=== PATIENT | female | born 1950 | race Caucasian/White ===

== ENCOUNTER → 2019-07-28 07:57 | Outpatient (CLI) | payer MEDICARE, BC ==
[2013-01-17 06:57] VITALS: BMI 29.2
[~2019-07-28 07:57] MED LIST: TOPROL XL50 MG PO
--- NOTE | 2019-08-07 13:30 | EC ---
PATIENT:LA NENA VELASQUEZ DATE OF SERVICE: 07/28/19 SEX: F MEDICAL RECORD: [id number] DATE OF : [birth year] LOCATION:D[facility] AGE OF PATIENT: 69 ADMISSION DATE: 07/28/19 REFERRING PHYSICIAN: INTERPRETING PHYSICIAN: NAVID HERNANDEZ MD ECHOCARDIOGRAM REPORT ECHO CHARGES 4 ECHO COMPLETE Date: 07/28/19 CLINICAL DIAGNOSIS: SOB/PULMONARY HTN/HTN ECHOCARDIOGRAPHIC MEASUREMENTS (adult normal given) AC root (d.<3.7cm) 2.8 cm LV Septum d (<1.2 cm> 1.1 cm Valve Excursion 1.6 cm LV Septum (systole) 1.6 cm Left Atria (s.<4.0cm> 2.3 cm LVPW d(<1.2cm) 1.2 cm RV (d.<2.3cm) 2.7 cm LVPW (sytole) 1.7 cm LV diastole(<5.6CM) 5.1 cm MV E-F(>70mm/sec) cm LV systole 3.4 cm LVOT Diameter 1.9 cm MV exc.(>10mm) cm Est.ejection fraction (50-75%) % DOPPLER: LVIT cm/sec A 86.0 cm/sec E 103 cm/sec LA cm/sec RVSP 47.4 mmHg LVOT 84.0 cm/sec AOP1/2T m/s Asc. Ao 134 cm/sec RVOT 60.0 cm/sec RA cm/sec PA 88.0 cm/sec AV Gradient Peak 7.2 mmHg AV Mean 4.5 mmHg AV Area 1.7 cm MV Gradient Peak 6.4 mmHg MV Mean 2.2 mmHg MV Area cm COMMENTS: OP - HC Food Vendor: Janes [facility] [place] Unit Clerk: 1 Dr. Hernandez TAPE# PACS Pericardial Effusion N DATE OF SERVICE: PROCEDURE: Echocardiogram. FINDINGS: 1. Left ventricular chamber size is within normal limits. Left ventricular systolic function is normal at 55% to 60%. 2. Left atrium, right atrium, and right ventricular chamber sizes are within normal limits. 3. Valvular structures have normal structure and motion. ECHOCARDIOGRAM REPORT [id number] LA NENA VELASQUEZ 4. Doppler interrogation reveals mild mitral regurgitation, moderate tricuspid regurgitation, no other valvular insufficiency or stenosis. Pulmonary systolic pressure is estimated 47 mmHg. 5. No evidence of pericardial effusion or left ventricular thrombus. TRANSINT:[id number] Voice Confirmation ID: [id number] DOCUMENT ID: [id number] NAVID HERNANDEZ MD at 1330 CC: [id number] DICTATION DATE: 07/29/19 180 DEWATERER OPERATOR: 07/30/19 0150 DEP CLI 07/28/19 [place] [id number] [place] [address]
[2019-09-24 00:47] VITALS: BMI 27.7
== END | disposition home or self-care (01) ==
LOC: D.HCCECHO 07:57
PROVIDERS: ATTEND Internal Medicine Interventional Cardiology
DX: I27.20 Pulmonary hypertension, unspecified (principal)

== ENCOUNTER 2019-09-23 21:05 | Observation (INO) | payer MEDICARE, BC ==
[~2019-09-23] VITALS: Ht 162.6 cm; Wt 73.4 kg
--- NOTE | ~2019-09-23 | HEMODYNAMI ---
PATIENT:LA NENA VELASQUEZ MEDICAL RECORD: [id number] : 48 LOCATION:[facility] D.2116 ADMISSION DATE: 09/23/19 Generatedon:09/24/201912:35 Patient name: LA NENA VELASQUEZ Patient #: [id number] SS N: : 1950 Date of study: 09/24/2019 Page: Of Hemodynamic Procedure Report Patient Data Patient Demographics Procedure consent was obtained First Name: LA NENA Gender: Female Last Name: RON : 1950 [facility] Initial: E Age: 69 year(s) Patient #: [id number] Race: Unknown Additional ID: [id number] Contact details [address]: [address] [place] [address] State: [place] City: [place] Zip code: [address] Past Medical History Allergies Allergen Reaction Date Comments Reported Sulfa drugs 09/24/2019 Penicillins 09/24/2019 Admission Admission Data Admission Date: 09/23/2019 Admission Time: 22:31 Room #: D.2116 Lab Results Lab Result Date: 09/24/2019 Lab Result Time: 0:00 Biochemistry Name Units Result Min Max BUN mg/dl 15 --(--*-)-- 7 18 Creatinine mg/dl 0.8 --(-*--)-- 0.6 1.3 CBC Name Units Result Min Max Hemoglobin g/dl 13.8 --(*---)-- 13.5 17.5 Procedure Procedure Types Cath Procedure Diagnostic Procedure LHC LHC w/Coronaries Procedure Description Procedure Date Procedure Date: 09/24/2019 Procedure Start Time: 12:25 Procedure End Time: 12:32 Procedure Staff Name Function Truong Hernandez MD Performing Physician Armaan Ashby RN Casket Assembler Israel Cedeno RT Monitor Trish Rob RT Scrub Jacinta Nathan RN Nurse Procedure Data Cath Procedure Fluoroscopy Diagnostic fluoroscopy Total fluoroscopy Time: 1 time: 1 min min Diagnostic fluoroscopy Total fluoroscopy dose: 167 dose: 167 mGy mGy Contrast Material Contrast Material Type Amount (ml) Isovue 370 38 Entry Location Entry Primary Successful Side Size Upsize Upsize Entry Closure Bran ccessful Closure Location (Fr) 1 (Fr) 2 (Fr) Remarks Device Remarks Radial Right 6 Fr Manual artery Short Compression Diagnostic catheters Device Type Used For End Catheter Placement DIAGNOSTIC Midland 110cm 5 LV Angiography Fr catheter ([id number]) Procedure Complications No complications Procedure Medications Medication Administration Route Dosage Oxygen etCO2 Nasal cannula 2 l/min Lidocaine 2% added to field 20 Heparin Flush Bag added to field 2 bags (1000units/500ml NS) 0.9% NaCl I.V. 100 ml/hr Radial Cocktail I.A. 1 syringe (Verapamil 2mg/Nitro 400mcg/Heparin 1500units) Versed I.V. 2 mg Fentanyl I.V. 50 mcg Versed I.V. 1 mg Fentanyl I.V. 50 mcg Lopressor I.V. 5 mg Hemodynamics Rest HGB: 13.8 (g/dl) Heart Rate: 105 (bpm) Snapshots Pre Cath Intra NCS Post Cath Vital Signs Time Heart Resp SPO2 etCO2 NIBP (mmHg) Rhythm Pain Sedation Rate (ipm) (%) (mmHg) Status Level (bpm) 12:06:45 111 20 100 33.2 175/104(137) NSR 0 (11) 10(A) , No pain 12:11:08 99 21 99 27.9 146/87(123) NSR 0 (11) 10(A) , No pain 12:15:26 91 38 100 30.2 153/82(126) NSR 0 (11) 10(A) , No pain 12:19:46 83 17 98 30.9 136/68(98) NSR 0 (11) 10(A) , No pain 12:24:02 82 13 96 15.8 130/66(86) NSR 0 (11) 9(A) , No pain 12:28:12 118 20 95 30.9 132/83(107) NSR 0 (11) 9(A) , No pain 12:34:16 74 16 97 31.7 118/73(82) NSR 0 (11) 10(A) , No pain Medications Time Medication Route Dose Verified Delivered Reason Notes Effectiveness by by 12:15:55 Radial Cocktail I.A. 1 Truong Guerin for (Verapamil syringe Mary Hernandez MD vasodilation 2mg/Nitro 400mcg/Heparin 1500units) 12:16:25 Oxygen etCO2 2 l/min Truong Buffie used for Nasal Mary Nathan RN procedure cannula 12:16:33 Lidocaine 2% added 20ml Truong Truong for local to vial Mary Hernandez MD anesthetic field 12:16:38 Heparin Flush added 2 bags Truongkatie Guerin used for Bag to Mary Hernandez MD procedure (1000units/500ml field NS) 12:16:47 0.9% NaCl I.V. 100 Truong Buffie Per ml/hr Mary Nathan RN physician 12:22:58 Versed I.V. 2 mg Truong Buffie for sedation Mary Nathan RN 12:23:04 Fentanyl I.V. 50 mcg Truong Buffie for sedation Mary Nathan RN 12:27:14 Versed I.V. 1 mg Truong Buffie for sedation Mary Nathan RN 12:27:18 Fentanyl I.V. 50 mcg Truong Spauldingie for sedation Mary Nathan RN 12:30:08 Lopressor I.V. 5 mg Truong Spauldingie for Mary Nathan RN arrhythmia Procedure Log Time Note 11:49:57 Armaan Ashby RN sent for patient. Start room use. 12:04:43 ACC Patient presents with Stable Angina CCS Anginal Class 1--Ordinary physical activity does not cause angina, angina occurs with strenuos, rapid, or prolonged activity.. 12:04:51 Procedure Status Elective Heart Cath (OP). 12:05:18 Time tracking: Regular hours (M-F 7:00 - 5:00) 12:05:23 Plan of Care:Hemodynamics will remain stable., Cardiac rhythm will remain stable., Comfort level will be maintained., Respiratory function will remain adequate., Patient/ family verbilizes understanding of procedure., Procedure tolerated without complication., Recovers from procedure without complications.. 12:05:31 Patient received from PCU to CCL 1 Alert and oriented. Tansferred to table in Supine position. 12:05:33 Signed procedure consent form obtained from patient. 12:05:34 Warm blankets applied, and dayna hugger turned on for patient comfort. 12:05:34 Correct patient and procedure confirmed by team. 12:05:35 ECG and BP/O2 sat monitors applied to patient. 12:05:36 Vital chart was started 12:05:38 Baseline sample Acquired. 12:05:40 Rhythm: sinus rhythm 12:05:42 Full Disclosure recording started 12:06:20 H&P Date Dictated: 09/23/2019 Within 30 days and on chart.. 12:06:21 Pre-procedure instructions explained to patient. 12:06:22 Pre-op teaching completed and patient verbalized understanding. 12:06:30 Family in patients room. 12:06:33 Patient NPO since Midnight. 12:06:48 Patient allergic to Sulfa drugs 12:07:11 Patient allergic to Penicillins 12:07:26 Is the patient allergic to Iodine/contrast media? No. 12:07:29 Is patient on blood thinner?No 12:07:35 Patient diabetic? No. 12:07:38 ----Pre-sedation anethsthesia assessment.---- 12:07:40 Previous problem with sedation/anesthesia? No ? 12:07:44 Snore? Yes 12:07:46 Sleep apnea? No 12:07:48 Deviated septum? No 12:07:49 Opens mouth fully? Yes 12:07:51 Sticks out tongue? Yes 12:07:56 Airway obstruction? No ? 12:08:00 Dentures? No ? 12:11:06 Pre procedure: right dorsailis pedis pulse 2+ Normal; easily identifiable; not easily obliterated 12:11:09 Modified David's test Ulnar < 7 seconds 12:11:12 Patient pain scale 0/10 ?. 12:11:32 IV patent on arrival in right antecubital with 0.9% NaCl at [facility]. 12:12:03 Lab Result : BUN 15 mg/dl 12:12:04 Lab Result : Creatinine 0.8 mg/dl 12:12:04 Lab Result : Hemoglobin 13.8 g/dl 12:12:07 Lab results completed and on chart. 12:12:22 Risk of Mortality: 0.2 12:12:28 Risk of blood transfusion: 3.0 12:12:33 Risk of NICK: 2.1 12:12:38 Right Radial & Right Groin area was prepped with chlora-prep and draped in sterile fashion 12:12:40 Alarms reviewed by R. N. 12:12:41 Sharps counted by scrub and verified by RBrodyN. 12:12:57 Physician arrived 12:15:55 Radial Cocktail (Verapamil 2mg/Nitro 400mcg/Heparin 1500units) 1 syringe I.A. was administered by Truong Hernandez MD; for vasodilation; Verbal order read back and verified. 12:16:25 Oxygen 2 l/min etCO2 Nasal cannula was administered by Jacinta Nathan RN; used for procedure; Verbal order read back and verified. 12:16:33 Lidocaine 2% 20ml vial added to field was administered by Truong Hernandez MD; for local anesthetic; Verbal order read back and verified. 12:16:38 Heparin Flush Bag (1000units/500ml NS) 2 bags added to field was administered by Truong Hernandez MD; used for procedure; Verbal order read back and verified. 12:16:47 0.9% NaCl 100 ml/hr I.V. was administered by Jacinta Nathan RN; Per physician; Verbal order read back and verified. 12:22:09 --------ALL STOP TIME OUT------ 12:22:10 Final Timeout: patient, procedure, and site verified with staff and physician. All members of the team are in agreement. 12:22:11 Right Radial & Right Groin site verified by team. 12:22:16 Fire Safety Assessment: A--An alcohol-based skin anteseptic being used preoperatively., C--Open oxygen or nitrous oxide is being used., D--An ESU, laser, or fiber-optic light is being used. 12:22:22 Physical assessment completed. ASA score P 2 - A patient with mild systemic disease as per Truong Hernandez MD. 12:22:50 1) 90+ Normal kidney functon but urine findings or structural abnormalities or genetic trait point to kidney disease. 12:22:58 Versed 2 mg I.V. was administered by Jacinta Nathan RN; for sedation; Verbal order read back and verified. 12:23:04 Fentanyl 50 mcg I.V. was administered by Jacinta Nathan RN; for sedation; Verbal order read back and verified. 12:23:13 Maximum allowable contrast dose (3.7 X eGFR X 0.75)249.75 ml. 12:23:19 Sedation plan: IV Moderate Sedation Medication:Versed, Fentanyl 12:23:36 Use device set Radial Dx or PCI 12:23:37 ACIST Syringe (27673) opened to sterile field. 12:23:38 Medline Cath Pack ([id number]) opened to sterile field. 12:23:38 Bag Decanter (2002S) opened to sterile field. 12:23:39 ACIST Hand Control (95048) opened to sterile field. 12:23:40 ACIST Manifold (59803) opened to sterile field. 12:23:40 Tegaderm 4 x 4 (1626W) opened to sterile field. 12:23:41 MBrace Wrist Support (141070827) opened to sterile field. 12:23:44 EMERALD Guide Wire (395-236) opened to sterile field. 12:23:45 SHEATH 6FR RAIN (5611902) opened to sterile field. 12:23:49 ZEPHYR REGULAR TR BAND (292166) opened to sterile field. 12:25:39 Procedure started. 12:25:56 Local anesthetic to right radial artery with Lidocaine 2% by Truong Hernandez MD.INITIAL ACCESS ONLY 12:26:05 A 6 Fr Short sheath was inserted into the Right Radial artery 12::53 A DIAGNOSTIC Midland 110cm 5 Fr catheter (700663) was advanced over the wire and used for LV Angiography. 12:27:09 LV angiography performed. 12:27:11 LV gram done using HOLMAN 12:27:14 Versed 1 mg I.V. was administered by Jacinta Nathan RN; for sedation; Verbal order read back and verified. 12:27:18 Fentanyl 50 mcg I.V. was administered by Jacinta Nathan RN; for sedation; Verbal order read back and verified. 12:27:33 EF : 60 % 12::37 LCA angiography performed. 12::49 RCA angiography performed. 12::52 Catheter removed. 12::59 Contrast amount:Isovue 370 38ml. 12:29:10 Sheath removed intact; hemostasis achieved with Manual Compression to the Right Radial artery. 12:29:12 Procedure ended.(Physican Out) ::29 Fluoroscopy time 01.00 minutes. ::38 Fluoroscopy dose: 167 mGy 12::38 Flurop Dose total: 167 12::45 Dose Area Product 9138 mGy/cm. 12::48 Sharps counted by scrub and verified by R.N. 12:30:02 Insertion/operative site no bleeding no hematoma. 12:30:07 Post-op/insertion site Right Radial artery dressed using a 4 x 4 and Tegaderm. 12:30:08 Lopressor 5 mg I.V. was administered by Jacinta Nathan RN; for arrhythmia; Verbal order read back and verified. 12:30:25 Post right radial artery:stable 12:30:31 [place] band inflated with 10cc of air. 12:30:36 Post procedure rhythm: sinus rhythm 12:30:38 Post procedure instruction explained to patient.Patient verbalizes understanding. 12:30:39 Procedure and supply charges have been captured, reviewed, submitted and are correct. 12:31:03 Procedure Complication : No complications 12:31:06 Vital chart was stopped 12:32:13 [facility] Findings: MVD- manage w/ optimal medication therapy 12:32:21 Operative report dictated upon procedure completion. 12:32:22 See physician's report for complete and final results. 12:32:32 Report given to PCU. 12:32:38 Patient transfered to PCU with Bed. 12:32:52 Procedure ended. 12:32:52 Full Disclosure recording stopped 12:33:19 End room use (Document Last) 12:33:53 End room use (Document Last) Device Usage Item Name Manufacture Quantity Catalog Hospital Part Current Minima l Lot# / Number Charge Number Stock Stock Serial# Code ACIST Acist 1 33102 223962 282218 [id number] 20 Syringe Medical (27383) Systems Inc Medline Medline 1 [id number] 217785 51220 728214 5 Cath Pack ([id number]) Bag Microtek 1 074351 15639 769711 5 Decanter Medical Inc. () ACIST Hand Acist 1 42140 958582 139547 290651 5 Control Medical (87903) Systems Inc ACIST Acist 1 77321 246933 938634 837833 5 Manifold Medical (09133) Systems Inc Tegaderm 4 3M 1 1626W 418540 870352 784580 5 x 4 (1626W) MBrace Advanced 1 140-0250-00 087839 22783 798617 5 Wrist Vascular Support Dynamics ([id number]) [facility] 1 479-884 897524 370786 647387 5 Guide Wire Health (208-036) SHEATH 6FR Cardinal 1 7854728 619335 0656113 332423 5 RAIN Health (6047888) ZEPHYR Cardinal 1 116123 003866 2085052 500761 5 REGULAR TR Health BAND (259573) DIAGNOSTIC Terumo 1 43-7168 090541 850072 175655 5 Midland 110cm 5 Fr catheter (177810) Signature Audit [place] Stage Time Signature Unsigned Intra-Procedure 09/24/2019 Israel Cedeno RT(R) 12:33:53 PM Intra-Procedure 09/24/2019 Jacinta Nathan RN 12:34:59 PM Intra-Procedure 09/24/2019 Truong Hernandez 12:35:30 PM [place] [id number] [place] [id number]
[2019-09-23 21:32] LABS: BASOPHILS 0.3 % (0-2); EOSINOPHILS 2.6 % (0-7); HEMATOCRIT 41.2 % (36.0-48.0); HEMOGLOBIN 13.8 g/dL (12-16); IMMATURE GRANULOCYTES 0.3 % (0-5); LYMPHOCYTES 36.9 % (15-50); MCH 30.3 pg (26.0-34.0); MCHC 33.5 g/dL (31.0-37.0); MCV 90.5 fL (80.0-100.0); MEAN PLATELET VOLUME 10.3 fL (7.4-10.4); MONOCYTES 8.4 % (2-11); NEUTROPHILS 51.5 % (40-80); PLATELET COUNT 170 10x3/uL (130-400); RBC 4.55 10x6/uL (4.00-5.40); RDW 13.3 % (11.5-14.5); WBC 6.9 10x3/uL (4.8-10.8)
[2019-09-23 21:36] VITALS: BP 173/87
[2019-09-23 21:39] LABS: CALC OSMOLALITY 279 mosm/kg (275-300); CARBON DIOXIDE 25.2 mmol/L (21.0-32.0); CHLORIDE - SERUM 104 mmol/L (98-107); CREATININE - SERUM 0.8 mg/dL (0.6-1.3); GLUCOSE 101 mg/dL (74-106); POTASSIUM - SERUM 3.1 mmol/L (3.5-5.1); SODIUM 140 mmol/L (136-145); UREA NITROGEN 15 mg/dL (7-18); eGFR NON AFRICAN AMERICAN 75 mL/min (90-120)
[2019-09-23 21:45] VITALS: BP 161/75
[2019-09-23 21:53] LABS: ALBUMIN 4.2 g/dL (3.4-5.0); ALKALINE PHOSPHATASE 76 U/L (46-116); ALT (SGPT) 20 U/L (10-68); BILIRUBIN - TOTAL 0.54 mg/dL (0.2-1.3); CREATINE KINASE 65 UL (21-215); MAGNESIUM - SERUM 1.9 mg/dL (1.8-2.4); PRO BNP 155 pg/mL (0-125); TROPONIN-I < 0.017 ng/mL (0.000-0.060)
[2019-09-23 22:00] VITALS: BP 142/80
[2019-09-24 00:47] VITALS: BP 141/81; Ht 162.6 cm; Wt 73.4 kg
[2019-09-24 04:00] VITALS: BP 126/64
[2019-09-24 04:19] LABS: BASOPHILS 0.4 % (0-2); EOSINOPHILS 2.5 % (0-7); HEMATOCRIT 38.7 % (36.0-48.0); HEMOGLOBIN 12.5 g/dL (12-16); IMMATURE GRANULOCYTES 0.2 % (0-5); LYMPHOCYTES 31.3 % (15-50); MCH 29.6 pg (26.0-34.0); MCHC 32.3 g/dL (31.0-37.0); MCV 91.5 fL (80.0-100.0); MEAN PLATELET VOLUME 10.8 fL (7.4-10.4); NEUTROPHILS 56.6 % (40-80); PLATELET COUNT 162 10x3/uL (130-400); RBC 4.23 10x6/uL (4.00-5.40); RDW 13.2 % (11.5-14.5); WBC 5.7 10x3/uL (4.8-10.8)
[2019-09-24 04:22] LABS: INR 1.16 (0.85-1.17); PROTIME 14.3 SECONDS (11.6-15.0)
[2019-09-24 04:23] LABS: APTT 32.7 SECONDS (22.8-39.4)
[2019-09-24 04:24] LABS: D-DIMER-QUANTITATIVE 2.48 ug/mLFEU (0.20-0.54)
[2019-09-24 04:43] LABS: CALC OSMOLALITY 285 mosm/kg (275-300); CALCIUM 8.4 mg/dL (8.5-10.1); CARBON DIOXIDE 26.7 mmol/L (21.0-32.0); CHLORIDE - SERUM 109 mmol/L (98-107); CKMB 0.6 U/L (0.0-3.6); CREATINE KINASE 54 UL (21-215); CREATININE - SERUM 0.6 mg/dL (0.6-1.3); GLUCOSE 97 mg/dL (74-106); PHOSPHOROUS 3.4 mg/dL (2.5-4.9); SODIUM 143 mmol/L (136-145); THYROID STIMULATING HORMONE 3.92 uIU/mL (0.36-3.74); UREA NITROGEN 14 mg/dL (7-18); eGFR NON AFRICAN AMERICAN > 90 mL/min (90-120)
[2019-09-24 04:53] LABS: TROPONIN-I < 0.017 ng/mL (0.000-0.060)
[2019-09-24 08:05] LABS: CHOL - HDL RATIO 3.4 ratio (2.3-4.1); LDL-HDL RATIO 2.2 ratio (1.5-3.5)
--- NOTE | 2019-09-24 08:30 | NUR ---
AM ROUNDS COMPLETED. INTRODUCED MYSELF TO PT PRIMARY RN FOR TODAYS SHIFT. PT IS A&O SITTING UP IN BED RESTING QUIETLY WITH SPOUSE AT BEDSIDE. PT DENIES ANY CURRENT CP. SHIFT ASSESSMENT COMPLETED. PT IS NPO FOR PLANNED HEART CATH TODAY AND VERBALIZED UNDERSTANDING. CONSENTS SIGNED AND PLACED IN CHART. NO IMMEDIATE NEEDS AT THIS TIME, WILL CTM AND AWAIT PROCEDURE. CL IN REACH, BED IN LOWEST, SIDE RAILS X2. WILL CTM.
[2019-09-24 09:05] LABS: CKMB 0.4 U/L (0.0-3.6); CREATINE KINASE 59 UL (21-215); TROPONIN-I < 0.017 ng/mL (0.000-0.060)
[2019-09-24 10:16] VITALS: BP 164/71
--- NOTE | 2019-09-24 10:49 | NUR ---
WATER SOFTENER SERVICER CALLED TO PRE-OP PT. PRE-OP MEDICATIONS GIVEN. PT WAITING QUIETLY IN BED WITH FAMILY AT BEDSIDE. NO CURRENT NEEDS. WILL CTM.
--- NOTE | 2019-09-24 13:06 | NUR ---
PT BACK FROM MONOTYPER LYING FLAT IN BED. RR NONLABORED ON RA. VSS AND BEING MONITERED PER POST PROCEDURE POLICY. PT DENIES ANY CURRENT PAIN AT THIS TIME. PT HAS A BAND TO HER R.WRIST CDI NO S/S OF BLEEDING OR HEMATOMA NOTED. FAMILY SURROUNDING BEDSIDE. NO CURRENT NEEDS. WILL CTM.
--- NOTE | 2019-09-24 14:27 | NUR ---
BAND TO R.WRIST REMAINS INFLATED AND NO S/S OF BLEEDING OR HEMATOMA NOTED. PT IS LYING BACK IN BED RESTING QUIETLY. PT DENIES ANY CURRENT PAIN OR NEEDS AT THIS TIME. PT IS OKAY FOR DISCHARGE PER CARDIOLOGY HOWEVER UNSURE WITH PRIMARY R/T ELEVATED D-DIMER. WILL DISCUSS WITH PRIMARY AND KEEP PT NPO FOR NOW AND CTM.
--- NOTE | 2019-09-24 14:58 | NUR ---
PT WILL HAVE VQ SCAN AND IS LEAVING ROOM NOW. FAMILY VERBALIZED UNDERSTANDING NO CURRENT NEEDS.
--- NOTE | 2019-09-24 15:52 | NUR ---
REMOVED HALF OF AIR FROM R.WRIST BAND. NO BLEEDING NOTED WILL CONTINUE TO REMOVE AIR ABLE.
--- NOTE | 2019-09-24 16:30 | NUR ---
REMOVED REMAINING HALF OF AIR FROM R.WRIST BAND. NO BLEEDING NOTED. PT IS GOING TO BE DISCHARGED AND IS HAPPY TO HEAR THIS. WILL BEGIN DISCHARGE PAPERS.
[2019-09-24] MEDS ORDERED: TOPROL XL50 MG PO (17:04)
--- NOTE | 2019-09-24 17:15 | NUR ---
STILL NO BLEEDING NOTED TO R.WRIST. BAND-AID PLACED. D/C PTS R.AC PIV WITH CATHETER TIP FULLY INTACT. DISCHARGE INSTRUCTIONS GIVEN AND PAPERS SIGNED. PT VERBALIZED UNDERSTANDING AND DENIES ANY QUESTIONS OR CONCERNS. HARD SCRIPT FOR PTS NEW MEDICATION GIVEN WELL. TELEMETRY REMOVED AND RETURNED TO [facility] TUNG. PT IS COLLECTING HER BELONGINGS AND GETTING READY TO LEAVE NOW. NO FURTHER NEEDS.
--- NOTE | 2019-09-24 17:18 | MORECARE ---
CASE MANAGEMENT DISCHARGE SUMMARY PATIENT: LA NENA VELASQUEZ UNIT: [id number] ADM DATE: 09/23/19 AGE: 69 : [birth year] SEX: F ROOM/BED: D.0916 AUTHOR: SHAUN MANUEL PHYSICIAN: REFERRING PHYSICIAN: ANABELL PINZON MD DATE OF SERVICE: 09/24/19 Discharge Plan Patient Name: LA NENA VELASQUEZ Facility: [facility]:[place] : 1950 Planned Disposition: Home Anticipated Discharge Date: 09/24/19 Discharge Date: Expected LOS: 1 Initial Reviewer: [email or web address] Initial Review Date: 09/24/2019 Generated: 09/24/19 6:18 pm Patient Name: LA NENA VELASQUEZ Page [id number] at 1718 All edits/amendments must be made on the electronic document DICTATION DATE: 09/24/191717 FLUOROSCOPE OPERATOR: MIKA 09/24/191717 RPT#: [id number] DC DATE: STATUS: ADM IN [facility] [address] [place] [address] END OF REPORT
--- NOTE | 2019-09-26 15:28 | OP ---
PATIENT NAME: LA NENA VELASQUEZ MEDICAL RECORD: [id number] :[birth year] LOCATION:D.M2 D.2116 ADMISSION DATE:09/23/19 SURGEON: NAVID MAGALLON MD DATE OF OPERATION: 09/24/2019 PROCEDURES: 1. Left heart catheterization. 2. Selective coronary angiography. 3. Left ventriculogram. INDICATION: Chest pain compatible with angina. PROCEDURE IN DETAIL: After informed consent was obtained and after a detailed description of risks, benefits as well as alternative therapies, the patient elected to proceed with angiogram and heart catheterization. The right radial area was prepped and draped in normal sterile fashion. Right radial artery was cannulated via modified Seldinger technique with placement of 6-Italian sheath. All catheters exchanged through this sheath. FINDINGS: The left ventriculogram was performed in standard 30-degree HOLMAN view, reveals good cardiac wall motion, ejection fraction estimated 60%. SELECTIVE CORONARY ANGIOGRAPHY: Left main, left anterior descending, left circumflex, and right coronary artery are all smooth-walled vessels with no angiographic evidence of coronary artery disease. The patient was in and out of supraventricular tachycardia during the procedure. This responded to metoprolol. OVERALL IMPRESSION: 1. No significant coronary artery disease present. 2. Normal LV function. 3. Episodes of supraventricular tachycardia that responded to beta blockade. Most likely this is the etiology of her symptomatology with center medical management on treatment of dysrhythmia. TRANSINT:[id number] Voice Confirmation ID: [id number] DOCUMENT ID: [id number] NAVID MAGALLON MD at 1528 CC: [id number] DICTATION DATE: 09/24/19 1237 CONTAINERS SALES REPRESENTATIVE: 09/24/19 1246 DIS IN 09/24/19 [facility] [address] [place] [id number]
== END 2019-09-24 17:39 | disposition home or self-care (01) ==
LOC: D.ER 21:05 → D.M2 22:31 → OBSVTIME 22:31 → D.M2 09-24 17:39
PROVIDERS: Emergency Medicine; Family Medicine; Internal Medicine Cardiovascular Disease; ADMIT Family Medicine Adult Medicine; ATTEND Family Medicine Adult Medicine
DX: I20.0 Unstable angina (principal); R07.9 Chest pain, unspecified; E87.6 Hypokalemia; I10 Essential (primary) hypertension; I27.20 Pulmonary hypertension, unspecified; M06.9 Rheumatoid arthritis, unspecified; I47.1 Supraventricular tachycardia

== ENCOUNTER → 2020-07-29 09:02 | Outpatient (CLI) | payer MEDICARE, BC ==
[2019-09-24 00:47] VITALS: BMI 27.7
== END | disposition home or self-care (01) ==
LOC: D.HCCECHO 09:02
PROVIDERS: ATTEND Internal Medicine Cardiovascular Disease
DX: R00.0 Tachycardia, unspecified (principal)